=== PATIENT | female | born 1960 | race American Indian/Alaskan Native ===

== ENCOUNTER 2019-01-03 21:49 | Emergency (ER) | payer BC ==
--- NOTE | 2019-01-03 22:23 | Emergency Department Report ---
Blank Doc - Documentation Documentation: 58 y.o. female presents with left shoulder pain x 2 days. She reports throbbing sensation. Current smoker. PMH HTN & GERD. Denies recent injury. XR of left shoulder ordered [facility] for evaluation
--- NOTE | 2019-01-04 00:07 | XRay Report ---
FINAL REPORT EXAM: XR SHOULDER 2+V LT HISTORY: shoulder pain TECHNIQUE: 3 views of the left shoulder PRIORS: None. FINDINGS: The glenohumeral and acromioclavicular joints are normally aligned. The bones are normally mineralize d. The soft tissues are unremarkable. IMPRESSION: Normal left shoulder.
[2019-01-04] MEDS ORDERED: TORADOL IM ONE (00:25)
[2019-01-04] MEDS ORDERED: TORADOL ONE (00:29)
--- NOTE | 2019-01-04 01:17 | Emergency Department Report ---
ED Extremity Problem HPI - General Chief complaint: Extremity Injury, Upper Stated complaint: LEFT SHOULDER INJURY Time Seen by Provider: 01/03/19 22:18 Source: patient Mode of arrival: Ambulatory Limitations: No Limitations - History of Present Illness Initial comments: 58-year-old female reports emerge department complaining of chronic recurrent left shoulder pain which has been worse for the past couple days. Pain is dull and aches and she believes is secondary to arthritis, but because of the progression of symptoms wanted him evaluated. Certain movements and palpation. There is no chest pain or shortness of breath, no hemoptysis, hematemesis, hematochezia. MD Complaint: extremity pain -: days(s), week(s) Location: left History of Same: No -: Yes arthralgia Radiation: none Severity scale (0 -10): 10 Quality: aching Consistency: constant Improves with: nothing Worsens with: nothing Associated Symptoms: denies other symptoms - Related Data Previous Rx's Medication Instructions Recorded Last Taken Type Ketorolac [Toradol] 10 mg PO Q6H PRN #20 tablet 01/04/19 Unknown Rx Allergies Allergy/AdvReac Type Severity Reaction Status Date / Time No Known Allergies Allergy Unverified 01/04/19 00:25 ED Review of Systems ROS: Stated complaint: LEFT SHOULDER INJURY Other details as noted in HPI Constitutional: denies: chills, fever Eyes: denies: eye pain, eye discharge, vision change ENT: denies: ear pain, throat pain Respiratory: denies: cough, shortness of breath, wheezing Cardiovascular: denies: chest pain, palpitations Endocrine: no symptoms reported Gastrointestinal: denies: abdominal pain, nausea, diarrhea Genitourinary: denies: urgency, dysuria, discharge Musculoskeletal: denies: back pain, joint swelling, arthralgia Skin: denies: rash, lesions Neurological: denies: headache, weakness, paresthesias Psychiatric: denies: anxiety, depression Hematological/Lymphatic: denies: easy bleeding, easy bruising ED Past Medical Hx - Past Medical History Previous Medical History?: Yes Hx Hypertension: Yes Hx GERD: Yes (acid reflux) - Surgical History Past Surgical History?: Yes Hx Cholecystectomy: Yes - Social History Smoking Status: Never Smoker Substance Use Type: Alcohol - Medications Home Medications: Home Medications Medication Instructions Recorded Confirmed Last Taken Type Ketorolac [Toradol] 10 mg PO Q6H PRN #20 tablet 01/04/19 Unknown Rx ED Physical Exam - General Limitations: No Limitations General appearance: alert, in no apparent distress - Head Head exam: Present: atraumatic, normocephalic - Eye Eye exam: Present: normal appearance, PERRL Pupils: Present: normal accommodation - ENT ENT exam: Present: normal exam, mucous membranes moist - Neck Neck exam: Present: normal inspection - Respiratory Respiratory exam: Present: normal lung sounds bilaterally. Absent: respiratory distress - Cardiovascular Cardiovascular Exam: Present: regular rate, normal rhythm. Absent: systolic murmur, diastolic murmur, rubs, gallop - GI/Abdominal GI/Abdominal exam: Present: soft, normal bowel sounds - Extremities Exam Extremities exam: Present: normal inspection - Back Exam Back exam: Present: normal inspection - Neurological Exam Neurological exam: Present: alert, oriented X3 - Psychiatric Psychiatric exam: Present: normal affect, normal mood - Skin Skin exam: Present: warm, dry, intact, normal color. Absent: rash ED Course Vital Signs 01/03/19 01/03/19 21:51 22:18 Temperature 97.9 F 97.9 F Pulse Rate 108 H 108 H Respiratory 16 18 Rate Blood Pressure 137/79 Blood Pressure 137/79 [Right] O2 Sat by Pulse 95 96 Oximetry Critical care attestation.: If time is entered above; I have spent that time in minutes in the direct care of this critically ill patient, excluding procedure time. ED Disposition Clinical Impression: Shoulder pain, acute Disposition: DC-01 TO HOME OR SELFCARE Is pt being admited?: No Does the pt Need Aspirin: No Condition: Stable Instructions: Arthralgia (ED), Adhesive Capsulitis (ED), Calcific Tendinitis (ED) Prescriptions: Ketorolac [Toradol] 10 mg PO Q6H PRN #20 tablet PRN Reason: Pain Referrals: RASHEEDA CORNEJO DO [Primary Care Provider] - 3-5 Days
[2019-01-04 01:35] VITALS: BP 119/72
== END 2019-01-04 01:45 | disposition home or self-care (01) ==
LOC: ED 21:49
DX: M25.512 Pain in left shoulder (principal); I10 Essential (primary) hypertension; K21.9 Gastro-esophageal reflux disease without esophagitis; Z90.49 Acquired absence of other specified parts of digestive tract
CPT/HCPCS: 73030; 96372; 99283; J1885

== ENCOUNTER 2019-02-04 10:30 | Emergency (ER) | payer BC, OTHER ==
[2019-02-04 11:01] VITALS: BP 133/82
[2019-02-04 12:50] LABS: Bacteria,Urine 1+ /HPF (Negative); Bilirubin,Urine NEG (Negative); Blood,Urine NEG (Negative); Mucus,Urine FEW /HPF; Protein,Urine <15 mg/dL mg/dL (Negative)
[2019-02-04 12:51] LABS: Color,Urine Yellow (Yellow)
[2019-02-04] MEDS ORDERED: NORCO 5/325 PO ONE (14:02)
--- NOTE | 2019-02-04 14:05 | Emergency Department Report ---
ED Abdominal Pain HPI - General Chief Complaint: Abdominal Pain Stated Complaint: LOWER PAIN/SIDE PAIN Source: patient Mode of arrival: Ambulatory Limitations: No Limitations - History of Present Illness Initial Comments: 58-year-old female past medical history obesity, smoking, asthma, hypertension presents with complaint of approximately 2-3 weeks of intermittent left-sided fl ank pain. Patient denies fevers chills nausea vomiting rash on abdomen or flank. Patient denies any recent trauma to her flank. States she may not have been hydrating as adequately as she should. Denies any diffuse body aches. Denies chest pain shortness of breath pleurisy palpitations or hemoptysis. States she smokes cigarettes and drinks on a weekly basis and denies any drug use otherwise. Patient denies any dysuria hematuria or increased urinary frequency. Denies trouble voiding her urine MD Complaint: abdominal pain Onset/Timin -: week(s) Location: L flank Radiation: none Severity: mild Severity scale (0 -10): 4 Quality: aching Consistency: intermittent Improves With: nothing Worsens With: nothing Treatments Prior to Arrival: NSAIDs - Related Data Previous Rx's Medication Instructions Recorded Last Taken Type Ketorolac [Toradol] 10 mg PO Q6H PRN #20 tablet 01/04/19 Unknown Rx HYDROcodone/APAP 5-325 [[place] 1 each PO Q6HR PRN #9 tablet 02/04/19 Unknown Rx 5/325] Ibuprofen [Motrin] 600 mg PO Q8H PRN #21 tablet 02/04/19 Unknown Rx Allergies Allergy/AdvReac Type Severity Reaction Status Date / Time No Known Allergies Allergy Unverified 01/04/19 00:25 ED Review of Systems ROS: Stated complaint: LOWER PAIN/SIDE PAIN Other details as noted in HPI Constitutional: denies: chills, fever Eyes: denies: eye pain, eye discharge, vision change ENT: denies: ear pain, throat pain Respiratory: denies: cough, shortness of breath, wheezing Cardiovascular: denies: chest pain, palpitations Endocrine: no symptoms reported Gastrointestinal: as per HPI. denies: abdominal pain, nausea, diarrhea Genitourinary: denies: urgency, dysuria, discharge Musculoskeletal: as per HPI (history of recurrent flank pain). denies: back pain, joint swelling, arthralgia Skin: denies: rash, lesions Neurological: denies: headache, weakness, paresthesias Psychiatric: denies: anxiety, depression Hematological/Lymphatic: denies: easy bleeding, easy bruising ED Past Medical Hx - Past Medical History Hx Hypertension: Yes Hx GERD: Yes (acid reflux) - Surgical History Hx Cholecystectomy: Yes - Social History Smoking Status: Current Every Day Smoker Substance Use Type: Alcohol - Medications Home Medications: Home Medications Medication Instructions Recorded Confirmed Last Taken Type Ketorolac [Toradol] 10 mg PO Q6H PRN #20 tablet 01/04/19 Unknown Rx HYDROcodone/APAP 5-325 [[place] 1 each PO Q6HR PRN #9 tablet 02/04/19 Unknown Rx 5/325] Ibuprofen [Motrin] 600 mg PO Q8H PRN #21 tablet 02/04/19 Unknown Rx ED Physical Exam - General Limitations: No Limitations General appearance: alert, in no apparent distress - Head Head exam: Present: atraumatic, normocephalic - Eye Eye exam: Present: normal appearance, PERRL, EOMI - ENT ENT exam: Present: mucous membranes moist - Neck Neck exam: Present: normal inspection - Respiratory Respiratory exam: Present: normal lung sounds bilaterally. Absent: respiratory distress - Cardiovascular Cardiovascular Exam: Present: regular rate, normal rhythm. Absent: systolic murmur, diastolic murmur, rubs, gallop - GI/Abdominal GI/Abdominal exam: Present: soft, normal bowel sounds, other (patient has minimal to no left-sided CVA tenderness on percussion) - Extremities Exam Extremities exam: Present: normal inspection, full ROM - Back Exam Back exam: Present: normal inspection, full ROM, other (no midline cervical thoracic or lumbar spinal tenderness) - Neurological Exam Neurological exam: Present: alert, oriented X3, CN II-XII intact, normal gait - Psychiatric Psychiatric exam: Present: normal affect, normal mood - Skin Skin exam: Present: warm, dry, intact, normal color. Absent: rash ED Course Vital Signs 02/04/19 11:00 Temperature 97.9 F Pulse Rate 96 H Respiratory 18 Rate Blood Pressure 133/82 [Right] O2 Sat by Pulse 95 Oximetry ED Medical Decision Making - Medical Decision Making A/P: Left flank pain DiffDx; renal colic, musculoskeletal pain, dehydration 1-as patient is tolerating by mouth fluids and food without difficulty at this time I advised her to remain well-hydrated. I had shared decision making discussion with patient and offered her basic laboratory testing and possible imaging if she felt the flank pain was intolerable. Patient states that she has had this several times in the past and her current discomfort is consistent with prior episodes. As patient's vital signs are normal she reports minimal to moderate pain and is not having difficulty voiding urine with unremarkable urinalysis it is reasonable to give her return precautions and treat her symptomatically at this time. Pain may be musculoskeletal or patient may have passed or is currently passing a kidney stone. 2-I advised patient to return to the ED for any difficulty voiding urine foul- smelling urine, hematuria intractable nausea and vomiting or severe sustained worsened left-sided flank pain 3-vital signs stable for discharge Critical care attestation.: If time is entered above; I have spent that time in minutes in the direct care of this critically ill patient, excluding procedure time. ED Disposition Clinical Impression: Flank pain, acute Disposition: DC-01 TO HOME OR SELFCARE Is pt being admited?: No Does the pt Need Aspirin: No Condition: Stable Instructions: Dehydration (ED), Abdominal Pain (ED), Flank Pain (ED) Additional Instructions: Patient advised to return to the ED for severe nausea vomiting worsened flank pain and bloody urine or difficulty voiding urine. Patient stated she understood these instructions Prescriptions: Ibuprofen [Motrin] 600 mg PO Q8H PRN #21 tablet PRN Reason: Pain HYDROcodone/APAP 5-325 [[place] 5/325] 1 each PO Q6HR PRN #9 tablet PRN Reason: Pain Referrals: SHAKIR KELLER MD [Primary Care Provider] - 3-5 Days [facility] [Provider Group] - 3-5 Days [facility] [Provider Group] - 3-5 Days Forms: Work/School Release Form(ED) Time of Disposition: 14:04
== END 2019-02-04 14:10 | disposition home or self-care (01) ==
LOC: ED 10:30
DX: R10.9 Unspecified abdominal pain (principal); I10 Essential (primary) hypertension; K21.9 Gastro-esophageal reflux disease without esophagitis; F17.200 Nicotine dependence, unspecified, uncomplicated; J45.909 Unspecified asthma, uncomplicated; E66.9 Obesity, unspecified; Z90.49 Acquired absence of other specified parts of digestive tract
CPT/HCPCS: 81001